=== PATIENT | male | born 2000 ===

== ENCOUNTER 2022-01-29 02:09 | Outpatient (CLI) | payer BC, OTHER | END 2022-01-29 02:10 | disposition critical access hospital (66) | LOC: EMS 02:09 | DX: R41.82 Altered mental status, unspecified (principal); R11.10 Vomiting, unspecified; R29.6 Repeated falls; R53.1 Weakness; R47.81 Slurred speech; Z72.89 Other problems related to lifestyle | CPT/HCPCS: A0425; A0427 ==

== ENCOUNTER 2022-01-29 02:23 | Emergency (ER) | payer BC, OTHER ==
--- NOTE | 2022-01-29 02:24 | ED Physician Documentation ---
History of Present Illness - Stated complaint Stated Complaint: ETOH, VOMITING - History obtained from History obtained from: Family (brother of patient (in ED at bedside)), EMS - Additonal information Additional information: BIBA for AMS, vomiting. Per EMS report as well as information gathered from d/w patient's brother, patient is visiting from [place] and drank alcohol to excess tonight, exhibited increasingly altered mental status and vomiting. Patient is too altered to contribute to HPI/ROS. EMS reports possible fall earlier tonight although patient's brother says he did not witness any falls. Review of Systems Unable to obtain: AMS, Intoxicated PD PAST MEDICAL HISTORY - Past Medical History Other Past Medical History: unknown - Present Medications Home Medications: Ambulatory Orders Medication Instructions Recorded Confirmed No Known Home Medications 01/29/22 01/29/22 - Allergies Allergies/Adverse Reactions: Allergies Allergy/AdvReac Type Severity Reaction Status Date / Time No Known Drug Allergies Allergy Verified 01/29/22 02:37 PD ED PE NORMAL - Vitals Vital signs reviewed: Yes - General General: No acute distress, Well developed/nourished, Other (obtunded) - HEENT HEENT: Atraumatic, PERRL - Cardiac Cardiac: RRR, No murmur - Respiratory Respiratory: No respiratory distress, Clear bilaterally - Abdomen Abdomen: Soft, Non tender - Derm Derm: Normal color, Warm and dry - Neuro Eye Opening: To Pain Motor: Localizes to Pain Verbal: Incomprehensible GCS Score: 9 Results - Vitals Vitals: Oxygen O2 Source Room air - Labs Labs: Laboratory Tests 01/29/22 01/29/22 01/29/22 02:45 02:45 04:34 WBC 11.2 H RBC 4.74 Hgb 15.6 Hct 42.5 MCV 89.7 MCH 32.9 H MCHC 36.7 H RDW 12.0 Plt Count 336 MPV 9.2 Neut # (Auto) 6.7 H Lymph # (Auto) 3.4 Dyer # (Auto) 0.8 Eos # (Auto) 0.2 Baso # (Auto) 0.1 Absolute Nucleated RBC 0.00 Nucleated RBC % 0.0 Sodium 134 L Potassium 2.6 L Chloride 99 L Carbon Dioxide 24 Anion Gap 11.0 BUN 10 Creatinine 0.8 Estimated GFR (MDRD) 125 Glucose 178 H Calcium 8.8 Total Bilirubin 0.6 AST 23 ALT 18 Alkaline Phosphatase 53 Total Protein 7.5 Albumin 4.9 Globulin 2.6 Albumin/Globulin Ratio 1.9 Lipase 32 Urine Opiates Screen NEGATIVE Ur Oxycodone Screen NEGATIVE Urine Methadone Screen NEGATIVE Ur Propoxyphene Screen NEGATIVE Ur Barbiturates Screen NEGATIVE Ur Tricyclics Screen NEGATIVE Ur Phencyclidine Scrn NEGATIVE Ur Amphetamine Screen NEGATIVE U Methamphetamines Scrn NEGATIVE U Benzodiazepines Scrn NEGATIVE Urine Cocaine Screen NEGATIVE U Cannabinoids Screen POSITIVE H Ethyl Alcohol 320.2 PD MEDICAL DECISION MAKING - ED course Complexity details: reviewed results, re-evaluated patient, considered differential, d/w family (brother) ED course: arrives via ambulance with AMS, reportedly drinking alcohol heavily tonight. Blood alcohol level is .320 and UDS is positive for marijuana. He is initially obtunded and given EMS report of possible fall, CTH ordered. A code blue was activated while patient was on CT table to which I immediately responded and the situation did not involve cardiovascular issues, but, rather, patient had become awake enough to become resistant and, briefly, combative as he was on the CT table but before CT could be performed. At this point, given that patient is becoming more awake and alert, and brother of patient (who was at the constitution party with patient) reporting that he did not witness any fall nor head injury, I cancelled the CT and patient is brought back to ED for further observation. Shortly after return to ED, patient repeatedly insisted on getting off of stretcher and was removing pulse ox and cardiac exercise physiologist leads and insisting on leaving, repeatedly saying "I have stuff to do tonight". Both ED staff and myself tried to get patient to comply with lying back on stretcher due to concern that he was unsteady on his feet and still exhibiting AMS. After exhaustive attempts to have patient comply with simply sitting on the stretcher, I had d/w patient's brother that I would have to restrain patient unless he (patient's brother) felt completely comfortable with taking patient home (given that he is intoxicated with high blood ethanol level and should only have improving mental status and is no longer a risk of vomiting and aspirating). Patient's brother says he is very much wanting to take patient back home and understands that patient is a potential risk for flight and possible combative behavior. Departure - Departure Disposition: 01 Home, Self Care Clinical Impression: Hypokalemia Acute alcohol intoxication Qualifiers: Complication of substance-induced condition: uncomplicated Qualified Code(s): F10.920 - Alcohol use, unspecified with intoxication, uncomplicated Condition: Good Instructions: ED Alcohol Intoxication, ED Potassium Deficiency Comments: Your potassium level was very low. You were being given intravenous potassium but you insisted on leaving before the infusion was complete. You NEED to have your potassium level rechecked; contact your primary care provider to arrange for next available appointment for this. Do not drink alcohol to excess. Your alcohol level was very high tonight. Discharge Date/Time: 01/29/22 04:47
[2022-01-29] MEDS ORDERED: SODIUM CHLORIDE 0.9% 1,000 ML IV STA (02:33)
[2022-01-29] MEDS ORDERED: ONDANSETRON 4 MG/2 ML VIAL IVP STA (02:33)
[2022-01-29 02:52] LABS: BASOPHILS # (AUTO) 0.1 10^3/uL (0.0-0.1); BASOPHILS % (AUTO) 0.9 %; EOSINOPHILS # (AUTO) 0.2 10^3/uL (0.0-0.7); EOSINOPHILS % (AUTO) 1.6 %; HCT - HEMATOCRIT 42.5 % (42.0-52.0); HGB - HEMOGLOBIN 15.6 g/dL (14.0-18.0); LYMPHOCYTES # (AUTO) 3.4 10^3/uL (1.5-3.5); LYMPHOCYTES % (AUTO) 30.7 %; MEAN CORPUSCULAR HEMOGLOBIN 32.9 pg (27.0-31.0); MEAN CORPUSCULAR HGB CONC 36.7 g/dL (32.0-36.0); MEAN CORPUSCULAR VOLUME 89.7 fL (80.0-94.0); MEAN PLATELET VOLUME 9.2 fL (7.4-11.4); MONOCYTES # (AUTO) 0.8 10^3/uL (0.0-1.0); NEUTROPHILS # (AUTO) 6.7 10^3/uL (1.5-6.6); NEUTROPHILS % (AUTO) 59.6 %; PLT - PLATELET COUNT 336 10^3/uL (130-450); RED BLOOD COUNT 4.74 10^6/uL (4.70-6.10); WHITE BLOOD COUNT 11.2 x10^3/uL (4.8-10.8)
[2022-01-29 03:02] LABS: ALBUMIN 4.9 g/dL (3.2-5.5); ALBUMIN/GLOBULIN RATIO 1.9 (1.0-2.2); BILIRUBIN,TOTAL 0.6 mg/dL (0.2-1.0); CALCIUM 8.8 mg/dL (8.5-10.3); CREATININE 0.8 mg/dL (0.6-1.2); ETOH - ETHANOL 320.2 mg/dL; POTASSIUM 2.6 mmol/L (3.5-5.0); TOTAL PROTEIN 7.5 g/dL (6.7-8.2)
[2022-01-29] MEDS ORDERED: POTASSIUM CHLOR 10 MEQ/100 ML 10 MEQ/100 ML BAG IV STA (03:29)
[2022-01-29 03:38] VITALS: BP 106/73
[2022-01-29 04:39] LABS: MUDS CUTOFF CONCENTRATIONS CUTOFF CONC BELOW:
[2022-01-29 04:49] LABS: AMPHETAMINE SCREEN,URINE NEGATIVE (NEGATIVE); BARBITURATE SCREEN,UR NEGATIVE (NEGATIVE); BENZODIAZEPINES SCREEN, URINE NEGATIVE (NEGATIVE); COCAINE SCREEN URINE NEGATIVE (NEGATIVE); METHADONE SCREEN, URINE NEGATIVE (NEGATIVE); METHAMPHETAMINES SCREEN, URINE NEGATIVE (NEGATIVE); OPIATE SCREEN, URINE NEGATIVE (NEGATIVE); OXYCODONE SCREEN, URINE NEGATIVE (NEGATIVE); PROPOXYPHENE SCREEN, URINE NEGATIVE (NEGATIVE); THC CANNABINOID SCREEN, URINE POSITIVE (NEGATIVE); TRICYCLIC ANTIDEPRESSANT,URINE NEGATIVE (NEGATIVE)
== END 2022-01-29 04:47 | disposition home or self-care (01) ==
LOC: ED 02:23
DX: R41.82 Altered mental status, unspecified (principal); E87.6 Hypokalemia
CPT/HCPCS: 36415; 80053; 80306; 80320; 83690; 85025; 96361; 96365; 96375; 99281